=== PATIENT | male | born 1980 | race Caucasian/White ===

== ENCOUNTER 2021-03-30 13:15 | Outpatient (CLI) | payer MEDICAID, SELFPAY ==
--- NOTE | 2021-03-30 13:35 | DI.RAD_ITS ---
Exam(s) XR SHOULDER RT COMPLETE 2+V EXAM: XR SHOULDER RT COMPLETE 2+V CLINICAL HISTORY: PAIN RT SHOULDER, M25.511, S/P FALL 4 DAYS AGO, ? LABRUM INJURY. TECHNIQUE: 2D digital imaging was performed. COMPARISON: No exams were available for comparison FINDINGS: There is no evidence of fracture or dislocation or abnormal soft tissue calcifications. No degenerat richa changes. No osseous lesions. Bone density normal. IMPRESSION: No significant radiographic findings. DATA REPOSITORY: RADIATION DOSE DELIVERED:
== END 2021-03-30 13:35 ==
PROVIDERS: Visit Provider Nurse Practitioner Family
DX: M25.511 Pain in right shoulder (principal)
CPT/HCPCS: 73030

== ENCOUNTER 2021-05-08 12:00 | Outpatient (REF) | payer MEDICAID, SELFPAY ==
[2021-05-08 15:25] LABS: HCT 46.4 % (40.0-50.0); HGB 15.3 g/dL (13.5-17.5); MCH 31.3 pg (27.0-33.0); MCV 94.9 fL (80-95); MPV 10.4 fL (8.0-11.0); Platelet Count 365 10^3/uL (130-400); RBC 4.89 10^6/uL (4.36-5.78); RDW 11.9 % (11.8-14.1); RDW-SD 41.7 fL; WBC 10.57 10^3/uL (4.4-10.8)
[2021-05-08 16:39] LABS: ALT 38 U/L (16-63); AST 20 U/L (15-37); Albumin 4.6 g/dL (3.4-5.0); Alkaline Phosphatase 70 U/L (46-116); Anion Gap 8.8 mmol/L (3-11); BUN 16 mg/dL (7-18); Bilirubin, Total 0.5 mg/dL (0.2-1.0); CO2 25.2 mmol/L (21.0-32.0); CREATININE 0.7 mg/dL (0.70-1.30); Calculated LDL 117 mg/dL (<100); Chloride 104 mmol/L (98-107); Cholesterol 185 mg/dL (<200); Glucose 86 mg/dL (74-106); HDL Cholesterol 61 mg/dL (40-60); Magnesium 1.8 mg/dL (1.8-2.4); Potassium 4.4 mmol/L (3.5-5.1); Sodium 138 mmol/L (136-145); Total Protein 7.5 g/dL (6.4-8.2); Triglyceride 38 mg/dL (<150)
== END 2021-05-08 12:01 | disposition home or self-care (01) ==
LOC: NCHCN 12:00
PROVIDERS: Visit Provider Physician Assistant
DX: R19.7 Diarrhea, unspecified (principal); Z13.220 Encounter for screening for lipoid disorders
CPT/HCPCS: 80053; 80061; 85027; 83735

== ENCOUNTER 2023-04-22 16:56 | Outpatient (CLI) | payer MEDICAID, SELFPAY ==
[2023-04-22 17:00] LABS: TSH (W/Ref FT4) 3.29 uIU/mL (0.36-3.74)
[2023-04-25 10:39] LABS: IgA 256 mg/dL (85-499); IgG 1032 mg/dL (610-1616)
[2023-04-26 13:39] LABS: Tissue Transglutaminase IgA <4.0 CU (<20.0)
== END 2023-04-22 16:57 | disposition home or self-care (01) ==
LOC: LBO 16:56
PROVIDERS: Visit Provider Nurse Practitioner Family
DX: R10.9 Unspecified abdominal pain (principal); R14.0 Abdominal distension (gaseous); R11.2 Nausea with vomiting, unspecified; R19.7 Diarrhea, unspecified
CPT/HCPCS: 36415; 82784; 84443